=== PATIENT | male | born 1965 | race Caucasian/White ===

== ENCOUNTER 2019-08-23 10:39 | Emergency (ER) | payer BC ==
[~2019-08-23] VITALS: Ht 177.8 cm; Wt 117.9 kg
--- NOTE | 2019-08-23 11:56 | NUR ---
Patient back in room from Radiology
--- NOTE | 2019-08-23 13:24 | NUR ---
Patient discharged to home in stable conditon. Written and verbal after care instructions given. Patient verbalizes understanding of instructions. Patient ambulated with stable gait.
[2019-08-23 13:27] VITALS: BP 131/78
== END 2019-08-23 13:27 | disposition home or self-care (01) ==
LOC: ER 10:46
DX: S16.1XXA Strain of muscle, fascia and tendon at neck level, initial encounter (principal); K21.9 Gastro-esophageal reflux disease without esophagitis; V43.52XA Car driver injured in collision with other type car in traffic accident, initial encounter; Y93.89 Activity, other specified; Y92.89 Other specified places as the place of occurrence of the external cause; Y99.8 Other external cause status
CPT/HCPCS: 72050; A4663

== ENCOUNTER 2020-01-09 14:02 | Emergency (ER) | payer BC ==
[~2020-01-09] VITALS: Ht 177.8 cm; Wt 115.7 kg
--- NOTE | 2020-01-09 14:22 | NUR ---
Dr Dlegado at the bedside for MSE.
[2020-01-09] MEDS ORDERED: HYDROMORPHONE 1 MG/1 ML DISP.SYRIN IV ONE (14:30)
[2020-01-09] MEDS ORDERED: ONDANSETRON 4 MG/2 ML VIAL IV ONE (14:30)
[2020-01-09] MEDS ORDERED: IV NORMAL SALINE 1000 ML BAG IV ONE (14:30)
[2020-01-09] MEDS ORDERED: HYDROMORPHONE 2 MG/1 ML DISP.SYRIN ONE (14:33)
[2020-01-09] MEDS ORDERED: ONDANSETRON 4 MG/2 ML VIAL ONE (14:33)
[2020-01-09 14:47] LABS: BASOPHILS # (AUTO) 0.1 K/uL (0.0-8.0); BASOPHILS % (AUTO) 0.8 % (0.0-2.0); EOSINOPHILS # (AUTO) 0.1 K/uL (0.0-0.7); EOSINOPHILS % (AUTO) 0.8 % (0.0-7.0); HEMATOCRIT 47.2 % (36.7-47.1); HEMOGLOBIN 16.1 g/dL (12.5-16.3); LYMPHOCYTES # (AUTO) 1.3 K/uL (20.0-40.0); LYMPHOCYTES % (AUTO) 11.4 % (20.5-51.5); MEAN CORPUSCULAR HEMOGLOBIN 30.5 uug (23.8-33.4); MEAN CORPUSCULAR HGB CONC 34 g/dL (32.5-36.3); MEAN CORPUSCULAR VOLUME 89.6 fL (73.0-96.2); MONOCYTES # (AUTO) 0.6 K/uL (2.0-10.0); MONOCYTES % (AUTO) 5.4 % (0.0-11.0); NEUTROPHILS # (AUTO) 9.2 K/uL (1.8-8.9); NEUTROPHILS % (AUTO) 81.6 % (38.5-71.5); PLATELET COUNT (AUTO) 218 K/uL (152-348); RED BLOOD CELL COUNT(AUTO) 5.26 MIL/uL (4.06-5.63); WHITE BLOOD COUNT (AUTO) 11.3 K/uL (3.6-10.2)
[2020-01-09 14:50] LABS: CREATININE 1.1 mg/dL (0.6-1.3); POTASSIUM 4.1 mmol/L (3.5-5.1)
[2020-01-09 14:55] LABS: BILIRUBIN,DIRECT 0.1 mg/dL (0.0-0.2); BILIRUBIN,TOTAL 0.5 mg/dL (0.2-1.0); TOTAL PROTEIN, SERUM 8.4 g/dL (6.4-8.2)
[2020-01-09] MEDS ORDERED: PANTOPRAZOLE SODIUM 40 MG VIAL ONE (14:59)
[2020-01-09] MEDS ORDERED: PANTOPRAZOLE SODIUM 40 MG VIAL IV ONE (15:00)
--- NOTE | 2020-01-09 15:40 | NUR ---
Cardroom Hand assumes care- patient is AOx4, denies pains, for discharge@ this time, pending CD copy of the [place] Radiology staff notified by MD re: CD copy. Patient's daughter is@bedside. Patient speaks some [place], mostly Eritrean & [place]ican.
--- NOTE | 2020-01-09 15:46 | NUR ---
PATIENT IS PAIN FREE AT THIS TIME. IV removed. Catheter intact and site benign. Pressure and 4x4 gauze applied to site. No bleeding noted. Patient discharged to home in stable condition & brisk steady gait. Written and verbal after care instructions given to patient and adult daughter. Patient and family verbalized understanding and comapliance of instructions. Stressed follow up with primary doctor or return to ER for worsening s/s.
== END 2020-01-09 15:48 | disposition home or self-care (01) ==
LOC: ER 14:04
DX: R10.11 Right upper quadrant pain (principal); K21.9 Gastro-esophageal reflux disease without esophagitis; Z90.49 Acquired absence of other specified parts of digestive tract; K76.0 Fatty (change of) liver, not elsewhere classified
CPT/HCPCS: 36415; 76705; 80048; 80076; 83690; 84484; 85025; 93005; 96361; 96374; 96375; 99285; C9113; J1170; J2405; 70030-TC; A4663; J7030